=== PATIENT | male | born 1965 | race Caucasian/White ===

== ENCOUNTER → 2016-12-13 | Day surgery (SDC) | payer BC ==
[2016-12-10 13:48] VITALS: Ht 182.9 cm; Wt 82.7 kg
[~2016-12-13] VITALS: Ht 182.9 cm; Wt 82.7 kg
[~2016-12-13] MED LIST: AMINO ACIDS PO; B-COTAB18 PO; ECHINACEA PO; FEXO1TAB49 PO; FLNIN/ NAE; NTRGSL/4 UT; VITAMIN B12 PO; VITAMIN D PO
[2016-12-13 09:28] VITALS: BP 132/77; PULSE 76; TEMP 36.9; O2SAT 99
--- NOTE | 2016-12-13 12:22 | Procedure Note ---
Breath Hydrogen Test Interpretation Assessment: Findings consistent with positive Lactose breath test. Plan: Followup in our office for further evaluation and recommendations. Avoid Lactose containing foods Use Lactaid OTC as directed for intentional ingestion of Lactose containing products.
== END | disposition home or self-care (01) ==
LOC: C.GI 08:49
PROVIDERS: ATTEND Internal Medicine Gastroenterology
DX: R10.84 Generalized abdominal pain (principal); R63.2 Polyphagia; R14.3 Flatulence

== ENCOUNTER → 2017-01-09 | Outpatient (CLI) | payer BC ==
--- NOTE | 2017-01-09 18:47 | DIAGNOSTIC IMAGING REPORT ---
LUMBAR SPINE MRI HISTORY: Back pain LUMBAR PAIN TECHNIQUE: Multiplanar multisequence MRI of the lumbar spine was performed without the use of contrast. COMPARISON: None. FINDINGS: For the purpose of the report the L5-S1 disc space will be located on axial image 27 of 30. Normal signal characteristics of the vertebral bodies. Mild degenerative disc desiccation L5-S1. L1-L2: No significant central canal or neural foraminal narrowing. L2-L3: No significant central canal or neural foraminal narrowing. L3-L4: No significant central canal or neural foraminal narrowing. L4-L5: No significant central canal or neural foraminal narrowing. L5-S1: Mild left central disc herniation. Mild impact anterior aspect thecal sac. Slight posterior displacement of the S1 nerve roots bilaterally. Mild narrowing of the neuroforamina bilaterally. IMPRESSION: 1. Mild left central broad-based disc herniation L5-S1. 2. Mild impact anterior thecal sac with slight posterior displacement of the S1 nerve roots bilaterally. 3. Remainder of the study is negative Electronically signed by: Liang Angeles M.D. 01/09/2017 6:46 PM Dictated Date/Time: 01/09/2017 6:44 PM
== END | disposition home or self-care (01) ==
LOC: C.MRI 17:36
DX: M54.5 Low back pain (principal)